=== PATIENT | female | born 1960 | race Caucasian/White ===

== ENCOUNTER 2021-07-13 01:49 | Emergency (ER) | payer MEDICAID, OTHER ==
[~2021-07-13] VITALS: Ht 170.2 cm; Wt 72.6 kg
[2021-07-13 04:40] VITALS: BP 135/80
== END 2021-07-13 07:32 | disposition home or self-care (01) ==
LOC: ER 01:52
DX: J30.9 Allergic rhinitis, unspecified (principal); Z20.822 Contact with and (suspected) exposure to COVID-19
CPT/HCPCS: 36415; 71045; 87426